=== PATIENT | female | born 1950 | race Caucasian/White ===

== ENCOUNTER → 2019-12-27 | Outpatient (CLI) | payer MEDICARE, BC ==
[~2019-12-27] MED LIST: CALC500T54 PO; LEVO125T5 PO; MOME13HF5 IH; PARO10TA57 PO; POTA20TA4 PO; SIMV20TA18 PO; TRIA1CAP3 PO
== END ==
LOC: LAB 09:30
PROVIDERS: ATTEND Nurse Anesthetist, Certified Registered
DX: Z01.812 Encounter for preprocedural laboratory examination (principal); Z20.828 Contact with and (suspected) exposure to other viral communicable diseases; R13.10 Dysphagia, unspecified
CPT/HCPCS: U0003-CS

== ENCOUNTER → 2019-12-31 | Day surgery (SDC) | payer MEDICARE, BC ==
[~2019-12-31] MED LIST changes: +ACETAMINOPHEN 325 MG TABLET PO PRN; +ALBUTEROL SULFATE 2.5 MG/3 ML NEBU. NEB PRN; +ATROPINE 0.5 MG/5 ML DISP.SYRIN. IV PRN; +IV RINGERS SOLUTION,LACTATED 1,000 ML IV SCH; +MIDAZOLAM HCL PF 2 MG/2 ML VIAL. IV PRN; +ONDANSETRON PF 4 MG/2 ML VIAL. IV PRN; +PHENOL ORAL SPRAY 177ML BOTTLE. MM PRN; +PROPOFOL 10,000 MCG/ML (20ML) VIAL IV ONE; +diphenhydrAMINE 50 MG/ML VIAL IV PRN
[2019-12-31 09:10] VITALS: BP 130/79
--- NOTE | 2020-01-02 19:09 | PATHOLOGY ---
[facility] Accession Number: [id number] . 01 Material submitted: . stomach - BIOPSY GASTRIC . 01 Clinical history: . DYSPHASIA . 02 Diagnosis: Gastric biopsies, gastric body: - Mild superficial chronic gastritis. (JPM:cherri; 01/02/2020) S 01/02/2020 0902 Local . 02 Comment: Sections of the gastric biopsy reveal gastric body mucosa showing superficial congestion, mild edema, and mild chronic inflammation. A properly controlled immunoperoxidase stain for Helicobacter is negative for Helicobacter organisms. (JPM:cherri; 01/02/2020) . Special stain performed: Immunoperoxidase stain for Helicobacter . 02 Electronically signed: . Ender Bonilla MD, Pathologist NPI- [id number] . 01 Gross description: . The specimen is received in formalin, labeled "Laura Parrish, biopsy gastric". Received are two segments of pale south soft tissue ranging in size from 0.3 to 0.6 cm in maximum dimensions. The specimen is submitted entirely in cassette A1. (CAA; 01/01/2020) QAC/QAC 01/02/2020 09 Local . 02 Pathologist provided ICD-10: K29.30 . 02 CPT . 023134, [id number] Specimen Comment: A courtesy copy of this report has been sent to [phone] Specimen Comment: [id number] Specimen Comment: Report sent to / DR ZAMORA Performed at: 01 [facility] [address], [place] [id number] MD Jose Montalvo MD Phone: [phone] Performed at: 02 [facility] [id number] MD Ender Bonilla MD Phone: [phone]
== END | disposition home or self-care (01) ==
LOC: SURG 07:56
PROVIDERS: ATTEND Emergency Medicine
DX: R13.10 Dysphagia, unspecified (principal); K22.2 Esophageal obstruction; K29.50 Unspecified chronic gastritis without bleeding; K44.9 Diaphragmatic hernia without obstruction or gangrene; E03.9 Hypothyroidism, unspecified; I10 Essential (primary) hypertension; J45.909 Unspecified asthma, uncomplicated; E66.01 Morbid (severe) obesity due to excess calories; Z98.890 Other specified postprocedural states; Z79.899 Other long term (current) drug therapy; Z88.0 Allergy status to penicillin; Z68.36 Body mass index [BMI] 36.0-36.9, adult
CPT/HCPCS: 43239; 43450; J2704; J7120

== ENCOUNTER 2020-02-07 09:51 | Emergency (ER) | payer MEDICARE, BC ==
[~2020-02-07] VITALS: Ht 157.5 cm; Wt 91.0 kg
[~2020-02-07 09:51] MED LIST changes: -ACETAMINOPHEN 325 MG TABLET PO PRN; -ALBUTEROL SULFATE 2.5 MG/3 ML NEBU. NEB PRN; -ATROPINE 0.5 MG/5 ML DISP.SYRIN. IV PRN; -IV RINGERS SOLUTION,LACTATED 1,000 ML IV SCH; -MIDAZOLAM HCL PF 2 MG/2 ML VIAL. IV PRN; -ONDANSETRON PF 4 MG/2 ML VIAL. IV PRN; -PHENOL ORAL SPRAY 177ML BOTTLE. MM PRN; -PROPOFOL 10,000 MCG/ML (20ML) VIAL IV ONE; -diphenhydrAMINE 50 MG/ML VIAL IV PRN
[2020-02-07 09:55] VITALS: BP 149/80
[2020-02-07] MEDS ORDERED: DIPH,PERTUSS(ACELL),TET VAC/PF 0.5 ML SYRINGE. VAX IM ONE (10:15)
--- NOTE | 2020-02-07 10:24 | RAD ---
HAND RIGHT 3V 02/07/2020 10:00 AM INDICATION: Laceration of the dorsum of the right thumb and base of the second digit COMPARISON: None available. TECHNIQUE: 3 views of the right hand are provided. FINDINGS/ IMPRESSION: 1. Soft tissue laceration is identified along the dorsum of the right thalamus the level of the first metacarpophalangeal joint. There is no acute fracture or dislocation identified. 2. There is a 2 mm lucent lesion involving the medullary space of the mid shaft of the first metacarpal, indeterminate and presumed benign given narrow zone of transition and no associated cortical disruption. 3. Mild degenerative changes are identified at the first carpometacarpal joint with joint space narrowing and marginal osteophytosis. 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 Electronically signed by: Mildred Sales MD (02/07/2020 10:21 AM) MAURA
--- NOTE | 2020-02-07 10:28 | PHYS DOC ---
Past History Past Medical History: Asthma, Hypertension, Hypothyroid Past Surgical History: Other Additional Past Surgical Histo: shoulder Alcohol Use: None General Adult EDM: Chief Complaint: LACERATION/AVULSION HPI: HPI: History obtained from patient. Patient is a 70-year-old right-handed female who presents with complaint of laceration to the base of her right thumb and overlying her first finger. She states she was cleaning dishes prior to arrival when a glass broke cutting the back of her right hand. Denies numbness or tingling. Notes mild bleeding. Unsure of tetanus status. No other complaints. Review of Systems: Review of Systems: Constitutional: Denies fever or chills Eyes: Denies change in visual acuity HENT: Denies nasal congestion or sore throat Respiratory: Denies cough or shortness of breath Cardiovascular: Denies chest pain or edema GI: Denies abdominal pain, nausea, vomiting, bloody stools or diarrhea : Denies dysuria Musculoskeletal: Denies back pain or joint pain Integument: Positive for laceration Neurologic: Denies headache, focal weakness or sensory changes Endocrine: Denies polyuria or polydipsia Lymphatic: Denies swollen glands Psychiatric: Denies depression or anxiety Current Medications: Current Meds: Current Medications Medications (Trade) Dose Ordered Sig/Orville Start Time Stop Time Status Last Admin Dose Admin Diphtheria/ Pertussis/Tetanus Vacc (ADACEL TDap SYRINGE) 0.5 ml ONCE ONCE 02/07/20 10:15 02/07/20 10:17 DC Allergies: Allergies: Allergies Coded Allergies Type Severity Reaction Last Updated Verified Penicillins Allergy Unknown hives 12/24/19 Yes Physical Exam: PE: Constitutional: Well developed, well nourished, no acute distress, non-toxic a ppearance. [] HENT: Normocephalic, atraumatic, bilateral external ears normal, oropharynx moist, no oral exudates, nose normal. [] Eyes: PERRLA, EOMI, conjunctiva normal, no discharge. [] Neck: Normal range of motion, no tenderness, supple, no stridor. [] Cardiovascular:Heart rate regular rhythm, no murmur [] Lungs & Thorax: Bilateral breath sounds clear to auscultation [] Abdomen: soft, no tenderness, no masses, no pulsatile masses. [] Skin: Warm, dry, no erythema, no rash. [] Back: No tenderness, no CVA tenderness. [] Extremities: 1 cm circular laceration noted to the dorsal aspect at the base of the thumb. No foreign bodies identified. 0.5 cm laceration to the distal portion of the first metacarpal. No foreign body visualized. Extension and flexion mechanism intact for both digits. Cardinal hand movements intact. Brisk capillary refill noted. Neurologic: Alert and oriented X 3, normal motor function, normal sensory function, no focal deficits noted. [] Psychologic: Affect normal, judgement normal, mood normal. [] Current Patient Data: Vital Signs: Vital Signs Date Time Temp Pulse Resp B/P (MAP) Pulse Ox O2 Delivery O2 Flow Rate FiO2 02/07/20 09:55 97.9 91 16 149/80 (103 96 Room Air EKG: EKG: [] Radiology/Procedures: Radiology/Procedures: [address] [address] IMAGING REPORT Signed PATIENT: ORLANDO MONTENEGRO ACCOUNT: [id number] : 1950 LOCATION: ER AGE: 70 SEX: F EXAM STATUS: REG ER ORD. PHYSICIAN: DIMITRI GALLEGO DO REASON: laceration over dorsum of R thumb and base of 2nd digit PROCEDURE: HAND RIGHT 3V HAND RIGHT 3V 02/07/2020 10:00 AM INDICATION: Laceration of the dorsum of the right thumb and base of the second digit COMPARISON: None available. TECHNIQUE: 3 views of the right hand are provided. FINDINGS/ IMPRESSION: 1. Soft tissue laceration is identified along the dorsum of the right thalamus the level of the first metacarpophalangeal joint. There is no acute fracture or dislocation identified. 2. There is a 2 mm lucent lesion involving the medullary space of the mid shaft of the first metacarpal, indeterminate and presumed benign given narrow zone of transition and no associated cortical disruption. 3. Mild degenerative changes are identified at the first carpometacarpal joint with joint space narrowing and marginal osteophytosis. 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 Electronically signed by: Keyur Cruz MD (02/07/2020 10:21 AM) [facility] DICTATED AND SIGNED BY: KEYUR CRUZ MD DATE: 02/07/20 1021 CC: PETER ZAMORA PAC; DIMITRI GALLEGO DO ~MTH0 0 [] Laceration Repair: Obtained verbal consent from patient. Time out done prior to procedure. No sedation was required. 2 Laceration(s) to thumb and index finger. Sterile drape fashioned, following sterile procedure. Procedure: Laceration Repair Length: 1 cm and 0.5 cm Description: Thumb laceration circular. Index ear laceration linear Mechanism: Glass Shape: Circular, linear Complex: no The wound area was prepped and draped in a sterile fashion. The wound area was anesthetized with 1% lidocaine with epinephrine The wound was explored with the following results no foreign body involvement. No tendon involvement.. The wound was repaired with 6; 5-0 nylon sutures were used. The wound was dressed cleanly. The patient tolerated the procedure well. Heart Score: Risk Factors: Risk Factors: DM, Current or recent (<one month) smoker, HTN, HLP, family history of CAD, obesity. Risk Scores: Score 0 - 3: 2.5% MACE over next 6 weeks - Discharge Home Score 4 - 6: 20.3% MACE over next 6 weeks - Admit for Clinical Observation Score 7 - 10: 72.7% MACE over next 6 weeks - Early Invasive Strategies Course & Med Decision Making: Course & Med Decision Making Pertinent Labs and Imaging studies reviewed. (See chart for details) [] Patient is a 70-year-old right-handed female presents with chief complaint of laceration of the right hand. Plain film imaging reveals no acute osseous abnormality or retained foreign body. Laceration repaired at bedside. See procedure note for further details. Given the clean nature of the wound antibiotics to be deferred. Instructed to have sutures removed in 7 days. Tetanus updated. Stable for discharge. Dragon Disclaimer: Maximilian Disclaimer: This electronic medical record was generated, in whole or in part, using a voice recognition dictation system. Departure Departure: Impression: Primary Impression: Hand laceration Qualified Codes: S61.411A - Laceration without foreign body of right hand, initial encounter Disposition: 01 DC HOME SELF CARE/HOMELESS Condition: STABLE Referrals: PETER ZAMORA PAC (PCP) Patient Instructions: Laceration Care, Adult Additional Instructions: Please have sutures removed in 1 week. DIMITRI GALLEGO DO Feb 07, 2020 10:27
== END 2020-02-07 10:37 | disposition home or self-care (01) ==
LOC: ER 09:51
DX: S61.011A Laceration without foreign body of right thumb without damage to nail, initial encounter (principal); S61.210A Laceration without foreign body of right index finger without damage to nail, initial encounter; J45.909 Unspecified asthma, uncomplicated; I10 Essential (primary) hypertension; Z88.0 Allergy status to penicillin; W25.XXXA Contact with sharp glass, initial encounter; Y93.G1 Activity, food preparation and clean up; Y92.89 Other specified places as the place of occurrence of the external cause; Y99.8 Other external cause status
CPT/HCPCS: 12001; 73130; 90471; 90715; 99283